=== PATIENT | female | born 1985 | race Caucasian/White ===

== ENCOUNTER 2017-01-13 17:03 | Emergency (ER) | payer OTHER, BC ==
[2017-01-13 17:07] VITALS: BP 148/79; BMI 37.9
[2017-01-13] MEDS ORDERED: NS 100 ML IV 100 ML IV ONE (17:44)
[2017-01-13] MEDS ORDERED: DILAUDID INJ IM ONE ×2 (18:19→18:31)
[2017-01-13] MEDS ORDERED: DILAUDID INJ ONE ×2 (18:20→18:31)
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
[2017-01-13] MEDS ORDERED: ZOFRAN INJ 4 MG VIAL IVP ONE ×2 (18:44→20:13)
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
[2017-01-13] MEDS ORDERED: ZOFRAN INJ 4 MG VIAL ONE (20:14)
== END 2017-01-13 20:40 | disposition home or self-care (01) ==
LOC: ER 17:03
DX: S30.811A Abrasion of abdominal wall, initial encounter (principal); V87.7XXA Person injured in collision between other specified motor vehicles (traffic), initial encounter
CPT/HCPCS: 70450; 71260; 72125; 73030; 73090; 73590; 74177; 96365; 96372; 96374; 96375; 99283; J2405

== ENCOUNTER → 2017-07-27 | Outpatient (CLI) | payer BC ==
--- NOTE | 2017-07-27 15:26 | US ---
HISTORY: Left breast lumps Bilateral digital diagnostic mammography with CAD and left breast ultrasound. Comparison: April 12, 2016 FINDINGS: Mammogram: Bilateral CC and MLO projections of the right and left breast were obtained. And mL view of the left breast was also obtained. Heterogeneously dense fibroglandular tissue is seen to be prese nt without significant interval change. No suspicious architectural distortion, mass or clustered mi crocalcifications can be observed to suggest malignancy. No skin thickening or nipple retraction is appreciated. No pathological lymphadenopathy can be identified. Benign-appearing calcifications are noted within the right and left breast. Ultrasound: Multiple grayscale and color Doppler images were obtained in the region of interest at 9 o'clock where there are 3 adjacent superficial horizontally oriented smoothly marginated and well cir cumscribed hypoechoic nodules with regions of posterior acoustical shadowing and internal vascularity favored to represent a combination of fibroadenomas and mildly complex cysts ranging in size from 5- 8 mm with the largest solid nodule located laterally in the breast in the smaller more cystic-appeari ng nodules located centrally. No suspicious cystic or solid nodule is seen to warrant biopsy at this time. IMPRESSION: Probably benign left breast nodules for which 6 month sonographic follow-up is recommend ed. ACR CATEGORY 3 - probably benign findings; short interval follow-up suggested. Diagnostic CAD was utilized and reviewed. * 0 (ZERO) - ASSESSMENT INCOMPLETE; ADDITIONAL IMAGING IS NEEDED. * 1/1 (ONE) - NEGATIVE. * 2/II (TWO) - BENIGN FINDINGS. * 3/III (THREE) - PROBABLY BENIGN FINDING; SHORT INTERVAL FOLLOW-UP SUGGESTED. * 4/IV (FOUR) - SUSPICIOUS ABNORMALITY; BIOPSY SHOULD BE CONSIDERED. * 5/V - HIGHLY SUSPICIOUS OF MALIGNANCY; BIOPSY SHOULD BE PERFORMED. A NEGATIVE X-RAY REPORT SHOULD NOT DELAY BIOPSY IF A DOMINANT OR CLINICALLY SUSPICIOUS MASS IS PRESENT; 4 TO 8 PERCENT OF CANCERS ARE NOT IDENTIFIED BY X-RAY. A NEGA TIVE REPORT MAY REINFORCE THE CLINICAL IMPRESSION. ADENOSIS AND DENSE BREASTS MAY OBSCURE AN UNDERLY ING NEOPLASM. Reported By:
== END ==
LOC: RAD 13:40
PROVIDERS: ATTEND Nurse Practitioner Family
DX: N63.22 Unspecified lump in the left breast, upper inner quadrant (principal)
CPT/HCPCS: 76642; 77066

== ENCOUNTER 2020-06-28 10:33 | Observation (INO) ==
--- NOTE | 2020-06-28 10:50 | DR.CP ---
HPI Time Seen Time Seen by Provider: 06/28/20 10:49 COVID-19 Coronavirus risk:travel/contact w/high risk person: No Has patient experienced Coronavirus symptoms: Yes Coronavirus symptoms experienced: Shortness of Breath Location Chest Pain Radiation Location: Left Jaw and Left Shoulder Associated Signs and Symptoms Associated Signs and Symptoms: Shortness of Breath PMH PMH Past Medical History: Anxiety and Depression Past Surgical History: Yes Surgical History: Hysterectomy Family History Family Medical History: Diabetes Mellitus, Cancer, [place], Coronary Artery Disease and Hypertension Social History Do you use any recreational Drugs:: No Travel Risk Coronavirus risk:travel/contact w/high risk person: No Has patient experienced Coronavirus symptoms: Yes Coronavirus symptoms experienced: Shortness of Breath PE Vitals Vitals: Temperature 97.8 F Pulse Rate 81 Respiratory Rate 23 Blood Pressure [Left Arm] 134/66 Blood Pressure 154/76 O2 Sat by Pulse Oximetry 100 ROR Labs Reviewed Result Diagrams: 06/28/20 11:26 06/28/20 11:26 Laboratory: WBC 7.9 X10^3/uL (3.6-10.0) 06/28/20 11:26 RBC 4.68 X10^6/uL (3.5-5.4) 06/28/20 11:26 Hgb 13.1 g/dL (12.0-16.0) 06/28/20 11:26 Hct 38.2 % (36.0-47.0) 06/28/20 11:26 MCV 81.6 fL (80.0-100.0) 06/28/20 11:26 MCH 28.0 pg (27.0-34.0) 06/28/20 11:26 MCHC 34.4 g/dL (33.0-35.0) 06/28/20 11:26 RDW 13.8 % (11.6-16.5) 06/28/20 11:26 Plt Count 224 X10^3/uL (150.0-450.0) 06/28/20 11:26 MPV 9.9 fL (7.4-11.0) 06/28/20 11:26 Neut % (Auto) 68.7 % (42.0-75.0) 06/28/20 11:26 Lymph % (Auto) 23.8 % (21.0-51.0) 06/28/20 11:26 [place] % (Auto) 5.7 % (0.0-13.0) 06/28/20 11:26 Eos % (Auto) 0.7 % (0.9-2.9) L 06/28/20 11:26 Baso % (Auto) 1.1 % (0.2-1.0) H 06/28/20 11:26 Neut # (Auto) 5.5 x10^3/uL (2.2-4.8) H 06/28/20 11:26 Lymph # (Auto) 1.9 X10^3/uL (1.3-2.9) 06/28/20 11:26 [place] # (Auto) 0.5 x10^3/uL (0.3-0.8) 06/28/20 11:26 Eos # (Auto) 0.1 x10^3/uL (0.0-0.2) 06/28/20 11: Baso # (Auto) 0.1 X10^3/uL (0.0-0.1) 06/28/20 11:26 Absolute Nucleated RBC 0.0 /100WBC 06/28/20 11:26 D-Dimer 0.30 ug/ml (0.0-0.57) 06/28/20 11:26 Sodium 142 mmol/L (136-145) 06/28/20 11:26 Corrected Sodium TNP 06/28/20 11:26 Potassium 3.6 mmol/L (3.5-5.1) 06/28/20 11:26 Chloride 103 mmol/L (98-107) 06/28/20 11:26 Carbon Dioxide 27.2 mmol/L (21-32) 06/28/20 11:26 BUN 14 mg/dL (7-18) 06/28/20 11:26 Creatinine 0.93 mg/dL (0.55-1.02) 06/28/20 11:26 Est GFR (MDRD) Af Amer > 60 (>60) 06/28/20 11:26 Est GFR (MDRD) Non-Af > 60 (>60) 06/28/20 11:26 Glucose 97 mg/dL (65-99) 06/28/20 11:26 Calcium 9.6 mg/dL (8.5-10.1) 06/28/20 11:26 Corrected Calcium TNP 06/28/20 11:26 Total Bilirubin 0.40 mg/dL (0.2-1.0) 06/28/20 11:26 AST 29 Units/L (15-37) 06/28/20 11:26 ALT 21 Units/L (12-78) 06/28/20 11:26 Alkaline Phosphatase 93 Units/L (46-116) 06/28/20 11:26 Creatine Kinase 87 Units/L (26-192) 06/28/20 11:26 CK-MB (CK-2) < 1.0 ng/mL (0-4.0) 06/28/20 11:26 CK/CKMB % Calc 1.2 % (<4) 06/28/20 11:26 Troponin I < 0.02 ng/mL (0-1.5) 06/28/20 11: B-Natriuretic Peptide 46.9 pg/mL (0-79) 06/28/20 11:26 Total Protein 8.1 g/dL (6.4-8.2) 06/28/20 11:26 Albumin 4.0 g/dL (3.4-5.0) 06/28/20 11:26 Globulin 4.1 g/dL (2.5-4.5) 06/28/20 11: Albumin/Globulin Ratio 1.0 Ratio (1.1-2.1) L 06/28/20 11:26 TSH 3rd Generation 6.739 uIU/mL (0.358-3.74) H 06/28/20 11: Specimen Type Clean catch urine 06/28/20 11:20 Urine Color Yellow (YELLOW) 06/28/20 11:20 Urine Appearance Clear (CLEAR) 06/28/20 11:20 Urine pH 8.0 (5.0 - 8.0) 06/28/20 11: Ur Specific [place] 1.020 (1.000-1.030) 06/28/20 11:20 Urine Protein Negative (NEGATIVE) 06/28/20 11: Urine Glucose (UA) Negative (NEGATIVE) 06/28/20 11: Urine Ketones Negative (NEGATIVE) 06/28/20 11: Urine Occult Blood Negative (NEGATIVE) 06/28/20 11:20 Urine Nitrite Negative (NEGATIVE) 06/28/20 11:20 Urine Bilirubin Negative (NEGATIVE) 06/28/20 11:20 Urine Urobilinogen Normal (NORMAL) 06/28/20 11:20 Ur Leukocyte Esterase Negative (NEGATIVE) 06/28/20 11:20 SARS-CoV-2 (PCR) Negative (NEGATIVE) 06/28/20 14:19 Opioid Opioid Risk Tool Age (Luis box if 16-45): Yes History of Preadolescent Sexual Abuse: No Total: 1 Total Score Risk Category: Low Risk Copyright: Baron ORANTES predicting aberrant behaviors Instructions Forms: Precautions for COVID19 Patient Portal Social Distancing
[2020-06-28 10:56] VITALS: BMI 42.7
[2020-06-28 11:39] LABS: BASOPHILS # (AUTO) 0.1 X10^3/uL (0.0-0.1); BASOPHILS % (AUTO) 1.1 % (0.2-1.0); EOSINOPHILS # (AUTO) 0.1 x10^3/uL (0.0-0.2); EOSINOPHILS % (AUTO) 0.7 % (0.9-2.9); HEMATOCRIT 38.2 % (36.0-47.0); HEMOGLOBIN 13.1 g/dL (12.0-16.0); LYMPHOCYTES # (AUTO) 1.9 X10^3/uL (1.3-2.9); LYMPHOCYTES % (AUTO) 23.8 % (21.0-51.0); MEAN CORPUSCULAR HGB CONC 34.4 g/dL (33.0-35.0); MEAN CORPUSCULAR VOLUME 81.6 fL (80.0-100.0); MEAN PLATELET VOLUME 9.9 fL (7.4-11.0); MONOCYTES # (AUTO) 0.5 x10^3/uL (0.3-0.8); MONOCYTES % (AUTO) 5.7 % (0.0-13.0); NEUTROPHILS # (AUTO) 5.5 x10^3/uL (2.2-4.8); NEUTROPHILS % (AUTO) 68.7 % (42.0-75.0); PLATELET COUNT 224 X10^3/uL (150.0-450.0); RED BLOOD COUNT 4.68 X10^6/uL (3.5-5.4); RED CELL DISTRIBUTION WIDTH 13.8 % (11.6-16.5); WHITE BLOOD COUNT 7.9 X10^3/uL (3.6-10.0)
[2020-06-28 11:50] LABS: BILIRUBIN,URINE NEGATIVE (NEGATIVE); BLOOD/HEMOGLOBIN,URINE NEGATIVE (NEGATIVE); GLUCOSE, URINE NEGATIVE (NEGATIVE); KETONES,URINE NEGATIVE (NEGATIVE); LEUKOCYTE ESTERASE ,URINE NEGATIVE (NEGATIVE); NITRITES,URINE NEGATIVE (NEGATIVE); PROTEIN,URINE NEGATIVE (NEGATIVE); UROBILINOGEN,URINE NORMAL (NORMAL)
[2020-06-28 12:00] LABS: BLOOD UREA NITROGEN 14 mg/dL (7-18); CALCIUM 9.6 mg/dL (8.5-10.1); CARBON DIOXIDE 27.2 mmol/L (21-32); CHLORIDE 103 mmol/L (98-107); CREATININE 0.93 mg/dL (0.55-1.02); SODIUM 142 mmol/L (136-145); TROPONIN I < 0.02 ng/mL (0-1.5); eGFR NON BLACK RACES > 60 (>60)
[2020-06-28 12:02] LABS: APPEARANCE,URINE CLEAR (CLEAR); COLOR,URINE YELLOW (YELLOW)
[2020-06-28 12:05] LABS: ALANINE AMINOTRANSFERASE 21 Units/L (12-78); ALKALINE PHOSPHATASE 93 Units/L (46-116); ASPARTATE AMINO TRANSFERASE 29 Units/L (15-37); CKMB % 1.2 % (<4); CREATINE KINASE 87 Units/L (26-192); CREATINE KINASE MB < 1.0 ng/mL (0-4.0); TOTAL PROTEIN 8.1 g/dL (6.4-8.2)
[2020-06-28] MEDS ORDERED: ZOFRAN INJ 4 MG VIAL IVP PRN (16:29)
[2020-06-28] MEDS ORDERED: TORADOL 30 MG VIAL IVP PRN (16:29)
[2020-06-28] MEDS ORDERED: MORPHINE SULFATE INJ 4 MG IVP PRN (16:29)
[2020-06-28] MEDS: NS 1000 ML 1,000 ML IV SCH (16:39)
[2020-06-28 17:22] LABS: CKMB % 1.5 % (<4); CREATINE KINASE 69 Units/L (26-192); CREATINE KINASE MB < 1.0 ng/mL (0-4.0); TROPONIN I < 0.02 ng/mL (0-1.5)
[2020-06-28] MEDS: TYLENOL 325 MG TAB PO PRN (21:12)
[2020-06-28] MEDS ORDERED: REQUIP PO ONE (23:22)
[2020-06-29] LABS: CKMB % 1.5 % (<4); CREATINE KINASE 65 Units/L (26-192); CREATINE KINASE MB < 1.0 ng/mL (0-4.0); TROPONIN I < 0.02 ng/mL (0-1.5)
[2020-06-29] MEDS ORDERED: REQUIP PO ONE (00:06)
[2020-06-29 00:07] LABS: MYCOPLASMA PNEUMONIAE IGM AB NEGATIVE (NEGATIVE)
[2020-06-29] MEDS: NS 1000 ML 1,000 ML IV SCH (06:22)
[2020-06-29 06:34] LABS: BASOPHILS # (AUTO) 0.1 X10^3/uL (0.0-0.1); EOSINOPHILS # (AUTO) 0.1 x10^3/uL (0.0-0.2); EOSINOPHILS % (AUTO) 1.7 % (0.9-2.9); HEMATOCRIT 36.2 % (36.0-47.0); HEMOGLOBIN 12.1 g/dL (12.0-16.0); LYMPHOCYTES # (AUTO) 2.2 X10^3/uL (1.3-2.9); LYMPHOCYTES % (AUTO) 33.4 % (21.0-51.0); MEAN CORPUSCULAR HEMOGLOBIN 27.8 pg (27.0-34.0); MEAN CORPUSCULAR HGB CONC 33.4 g/dL (33.0-35.0); MEAN CORPUSCULAR VOLUME 83.2 fL (80.0-100.0); MEAN PLATELET VOLUME 10.5 fL (7.4-11.0); MONOCYTES # (AUTO) 0.4 x10^3/uL (0.3-0.8); NEUTROPHILS # (AUTO) 3.7 x10^3/uL (2.2-4.8); NEUTROPHILS % (AUTO) 57.9 % (42.0-75.0); PLATELET COUNT 194 X10^3/uL (150.0-450.0); RED BLOOD COUNT 4.36 X10^6/uL (3.5-5.4); RED CELL DISTRIBUTION WIDTH 13.9 % (11.6-16.5); WHITE BLOOD COUNT 6.5 X10^3/uL (3.6-10.0)
[2020-06-29 06:46] LABS: ALANINE AMINOTRANSFERASE 20 Units/L (12-78); ALBUMIN 3.4 g/dL (3.4-5.0); ALKALINE PHOSPHATASE 79 Units/L (46-116); ASPARTATE AMINO TRANSFERASE 21 Units/L (15-37); BLOOD UREA NITROGEN 17 mg/dL (7-18); CALCIUM 8.9 mg/dL (8.5-10.1); CARBON DIOXIDE 26.6 mmol/L (21-32); CHLORIDE 106 mmol/L (98-107); CHOL/HDL RATIO 3.9 (0.0-5.0); CHOLESTEROL 151 mg/dL (0-200); CREATININE 0.86 mg/dL (0.55-1.02); HDL CHOLESTEROL 39 mg/dL (40-60); SODIUM 142 mmol/L (136-145); TOTAL PROTEIN 7.2 g/dL (6.4-8.2); TRIGLYCERIDES 85 mg/dL (0-150); eGFR NON BLACK RACES > 60 (>60)
[2020-06-29] MEDS ORDERED: ZOFRAN INJ 4 MG VIAL IVP PRN (08:03)
[2020-06-29] MEDS ORDERED: ANTIVERT TAB 25 MG PO PRN (08:04)
[2020-06-29] MEDS ORDERED: ATIVAN TAB 0.5 MG PO PRN (08:06)
--- NOTE | 2020-06-29 08:34 | DR.H&P ---
H&P History & Physical for Day of: H&P Date: 06/29/20 Chief Complaint Chief Complaint: Shortness of breath Palpitations Allergies Allergies Allergy/AdvReac Type Severity Reaction Status Date / Time promethazine [From Phenergan] Allergy Verified 10/17/19 10:29 History of Present Illness History of Present Illness: Pt is a 35 y/o f pmhx Hypothyroidism, MDD/ALEX, ad mitted for chest pain, palpitations, and shortness of breath. She reports symptoms have been occurring for over a month that has been getting worse. She recently seen cardiology-Dr Pryor that recommended a Holter monitor and stress test. Pt also has been having some dizziness and nausea. Labs/imaging: Wbc 6.5, Hgb 12.1, Plt 194, Na 142, K 3.6, Cr 0.86, Glucose 103, Troponin negative x 3, Ekg NSR, UA negative, COVID negative, TSH 6.7, FT4 0.9. Pt did not have CXR in ED, will order with ABG for further evaluation, otherwise workup unremarkable. Due to insurance was unable to get [place] thyroid, will contact pharmacy. Start on synthroid, ativan scheduled for anxiety, meclizine for dizziness. Continue to monitor and follow up labs/imaging in the morning. Past Medical History Past Medical History: Anxiety and Depression Past Surgical History Surgical History: Hysterectomy Family History Family Medical History: Cancer Social History Does patient currently use any type of tobacco product: No Have you used tobacco products in the last 12 months: No Type of Tobacco Use: None Does any household member use tobacco: No Alcohol Use: None Drug Use: None Medications Home Medications: promethazine [From Phenergan] Allergy (Verified 10/17/19 10:29) Labs Result Diagrams: 06/29/20 05:37 06/29/20 05:37 Labs: Laboratory WBC 6.5 X10^3/uL (3.6-10.0) 06/29/20 05:37 RBC 4.36 X10^6/uL (3.5-5.4) 06/29/20 05:37 Hgb 12.1 g/dL (12.0-16.0) 06/29/20 05:37 Hct 36.2 % (36.0-47.0) 06/29/20 05:37 MCV 83.2 fL (80.0-100.0) 06/29/20 05:37 MCH 27.8 pg (27.0-34.0) 06/29/20 05:37 MCHC 33.4 g/dL (33.0-35.0) 06/29/20 05:37 RDW 13.9 % (11.6-16.5) 06/29/20 05:37 Plt Count 194 X10^3/uL (150.0-450.0) 06/29/20 05:37 MPV 10.5 fL (7.4-11.0) 06/29/20 05:37 Neut % (Auto) 57.9 % (42.0-75.0) 06/29/20 05:37 Lymph % (Auto) 33.4 % (21.0-51.0) 06/29/20 05:37 [place] % (Auto) 6.0 % (0.0-13.0) 06/29/20 05:37 Eos % (Auto) 1.7 % (0.9-2.9) 06/29/20 05:37 Baso % (Auto) 1.0 % (0.2-1.0) 06/29/20 05:37 Neut # (Auto) 3.7 x10^3/uL (2.2-4.8) 06/29/20 05:37 Lymph # (Auto) 2.2 X10^3/uL (1.3-2.9) 06/29/20 05:37 [place] # (Auto) 0.4 x10^3/uL (0.3-0.8) 06/29/20 05:37 Eos # (Auto) 0.1 x10^3/uL (0.0-0.2) 06/29/20 05:37 Baso # (Auto) 0.1 X10^3/uL (0.0-0.1) 06/29/20 05:37 Absolute Nucleated RBC 0.1 /100WBC 06/29/20 05:37 PT 14.0 SECONDS (11.8-14.3) 06/29/20 05:37 INR Target Range - 06/29/20 05:37 INR 1.11 (0.8-1.3) 06/29/20 05:37 APTT 28.2 SECONDS (22.9-36.5) 06/29/20 05:37 PTT Comment - 06/29/20 05:37 D-Dimer 0.30 ug/ml (0.0-0.57) 06/28/20 11:26 Sodium 142 mmol/L (136-145) 06/29/20 05:37 Corrected Sodium TNP 06/29/20 05:37 Potassium 3.6 mmol/L (3.5-5.1) 06/29/20 05:37 Chloride 106 mmol/L (98-107) 06/29/20 05:37 Carbon Dioxide 26.6 mmol/L (21-32) 06/29/20 05:37 BUN 17 mg/dL (7-18) 06/29/20 05:37 Creatinine 0.86 mg/dL (0.55-1.02) 06/29/20 05:37 Est GFR (MDRD) Af Amer > 60 (>60) 06/29/20 05:37 Est GFR (MDRD) Non-Af > 60 (>60) 06/29/20 05:37 Glucose 103 mg/dL (65-99) H 06/29/20 05:37 Calcium 8.9 mg/dL (8.5-10.1) 06/29/20 05:37 Corrected Calcium TNP 06/29/20 05:37 Magnesium 2.0 mg/dL (1.7-2.9) 06/29/20 05:37 Total Bilirubin 0.50 mg/dL (0.2-1.0) 06/29/20 05:37 AST 21 Units/L (15-37) 06/29/20 05:37 ALT 20 Units/L (12-78) 06/29/20 05:37 Alkaline Phosphatase 79 Units/L (46-116) 06/29/20 05:37 Creatine Kinase 65 Units/L (26-192) 06/28/20 23:22 CK-MB (CK-2) < 1.0 ng/mL (0-4.0) 06/28/20 23:22 CK/CKMB % Calc 1.5 % (<4) 06/28/20 23:22 Troponin I < 0.02 ng/mL (0-1.5) 06/28/20 23:22 B-Natriuretic Peptide 46.9 pg/mL (0-79) 06/28/20 11:26 Total Protein 7.2 g/dL (6.4-8.2) 06/29/20 05:37 Albumin 3.4 g/dL (3.4-5.0) 06/29/20 05:37 Globulin 3.8 g/dL (2.5-4.5) 06/29/20 05:37 Albumin/Globulin Ratio 0.9 Ratio (1.1-2.1) L 06/29/20 05:37 Triglycerides 85 mg/dL (0-150) 06/29/20 05:37 Cholesterol 151 mg/dL (0-200) 06/29/20 05:37 LDL Cholesterol, Calc 95 mg/dL (0-100) 06/29/20 05:37 HDL Cholesterol 39 mg/dL (40-60) L 06/29/20 05:37 Cholesterol/HDL Ratio 3.9 (0.0-5.0) 06/29/20 05:37 Free T4 0.91 ng/dL (0.76-1.46) 06/28/20 11:26 TSH 3rd Generation 6.739 uIU/mL (0.358-3.74) H 06/28/20 11:26 Specimen Type Clean catch urine 06/28/20 11:20 Urine Color Yellow (YELLOW) 06/28/20 11:20 Urine Appearance Clear (CLEAR) 06/28/20 11:20 Urine pH 8.0 (5.0 - 8.0) 06/28/20 11:20 Ur Specific [place] 1.020 (1.000-1.030) 06/28/20 11:20 Urine Protein Negative (NEGATIVE) 06/28/20 11:20 Urine Glucose (UA) Negative (NEGATIVE) 06/28/20 11:20 Urine Ketones Negative (NEGATIVE) 06/28/20 11:20 Urine Occult Blood Negative (NEGATIVE) 06/28/20 11:20 Urine Nitrite Negative (NEGATIVE) 06/28/20 11:20 Urine Bilirubin Negative (NEGATIVE) 06/28/20 11:20 Urine Urobilinogen Normal (NORMAL) 06/28/20 11:20 Ur Leukocyte Esterase Negative (NEGATIVE) 06/28/20 11:20 Mycoplasma pneumon IgG Negative (NEGATIVE) 06/28/20 23: SARS-CoV-2 (PCR) Negative (NEGATIVE) 06/28/20 14:19 Review of Systems Constitutional: No Symptoms Reported Eyes: No Symptoms Reported ENT: No Symptoms Reported Respiratory: Shortness of Breath Cardiovascular: Chest Pain and Palpitations Gastrointestinal: Nausea Genitourinary: No Symptoms Reported Musculoskeletal: No Symptoms Reported Skin: No Symptoms Reported Neurological: No Symptoms Reported Physical Exam Vital Signs: Temperature 98.1 F Pulse Rate [Brachial] 78 Pulse Rate 81 Respiratory Rate 20 Blood Pressure [Left Arm] 119/65 Blood Pressure 154/76 O2 Sat by Pulse Oximetry 97 Oriented: Normal Eyes: Normal Ear: Normal Nose: Normal Throat: Normal Respiratory: Clear Throughout Cardiovascular: Normal : Normal Auscultation: Bowel Sounds: Normal Palpation: Normal Tenderness: Normal Skin: Normal Musculoskeletal: Normal Psychiatric: Anxiety Mood Description: Anxious and Appropriate Affect: Anxious Speech Pattern: Clear and Appropriate Assessment/Plan (1) Shortness of breath: Status: Acute Plan: Will get CXR and ABG to evaluate. (2) Anxiety: Status: Acute Plan: start on ativan (3) Hypothyroid: Qualifiers: Hypothyroidism type: acquired Qualified Code(s): E03.9 - Hypothyroidism, unspecified Status: Acute Plan: Start on synthroid, will follow up on [place] thyroid. Review H&P Reviewed: Yes Patient was examined?: Yes
--- NOTE | 2020-06-29 08:39 | RAD ---
HISTORYSOBSTUDYCHEST, PA/LAT [id number]-view chestFINDINGSThe cardiac and mediastinal contours are with in normal limits. The lungs are clear without focal consolidation or segmental collapse. No pleural e ffusion or pneumothorax.IMPRESSIONNo acute pulmonary process.Electronically signed by: Domenic Alexander (No v 2019 08:37:09)
[2020-06-29] MEDS: ATIVAN TAB 0.5 MG PO SCH ×2 (08:59→22:41)
[2020-06-29] MEDS: SYNTHROID 25 mcg TAB PO SCH ×2 (08:59→17:18)
[2020-06-29 09:18] LABS: ABG ALLEN TEST POS; ABG BASE EXCESS 1.9 mmol/L (-2.0-2.0); ABG HCO3 26.6 mmol/L (22-26)
[2020-06-29] MEDS: TYLENOL 325 MG TAB PO PRN (17:37)
[2020-06-30 05:42] LABS: BASOPHILS # (AUTO) 0.1 X10^3/uL (0.0-0.1); BASOPHILS % (AUTO) 1.4 % (0.2-1.0); EOSINOPHILS # (AUTO) 0.1 x10^3/uL (0.0-0.2); EOSINOPHILS % (AUTO) 1.8 % (0.9-2.9); HEMATOCRIT 37.1 % (36.0-47.0); HEMOGLOBIN 12.5 g/dL (12.0-16.0); LYMPHOCYTES # (AUTO) 2.6 X10^3/uL (1.3-2.9); MEAN CORPUSCULAR HEMOGLOBIN 27.9 pg (27.0-34.0); MEAN CORPUSCULAR HGB CONC 33.8 g/dL (33.0-35.0); MEAN CORPUSCULAR VOLUME 82.4 fL (80.0-100.0); MONOCYTES # (AUTO) 0.4 x10^3/uL (0.3-0.8); MONOCYTES % (AUTO) 5.7 % (0.0-13.0); NEUTROPHILS # (AUTO) 4.3 x10^3/uL (2.2-4.8); NEUTROPHILS % (AUTO) 57.1 % (42.0-75.0); PLATELET COUNT 188 X10^3/uL (150.0-450.0); RED CELL DISTRIBUTION WIDTH 13.9 % (11.6-16.5); WHITE BLOOD COUNT 7.5 X10^3/uL (3.6-10.0)
[2020-06-30 06:01] LABS: ALANINE AMINOTRANSFERASE 16 Units/L (12-78); ALBUMIN 3.5 g/dL (3.4-5.0); ALKALINE PHOSPHATASE 79 Units/L (46-116); ASPARTATE AMINO TRANSFERASE 21 Units/L (15-37); BLOOD UREA NITROGEN 18 mg/dL (7-18); CARBON DIOXIDE 24.8 mmol/L (21-32); CHLORIDE 106 mmol/L (98-107); CREATININE 0.78 mg/dL (0.55-1.02); SODIUM 141 mmol/L (136-145); TOTAL PROTEIN 7.5 g/dL (6.4-8.2); eGFR NON BLACK RACES > 60 (>60)
[2020-06-30] MEDS: ATIVAN TAB 0.5 MG PO SCH (08:39)
--- NOTE | 2020-06-30 11:42 | W.DIS.FURT ---
Summary of Discharge Discharge Summary of Date Date of Exam: 06/30/20 Admission Date Date of Admission: 06/28/20 Admission Diagnosis Hospital Course: Pt is a 35 y/o f pmhx Hypothyroidism, MDD/ALEX, admitted for chest pain rule out after feeling shortness of breath. Her hospital course included trending cardiac enzymes and placed on telemetry. She was given meclizine for dizziness, zofran for nausea, and ativan for anxiety. TSH was mildly elevated and FT4 wnl, however d/t symptoms Dawson thyroid was sent to pharmacy for patient to start taking on discharge, pt states she is unable to tolerate synthroid d/t palpitations and shortness of breath. She is being followed by cardiology-Dr White, and has a Holter monitor currently and will be scheduled for stress test outpt. Labs/imaging: Wbc 7.5, Hgb 12.5, Plt 188, Na 141, K 3.7, Cr 0.78, Glucose 100, Troponin negative x 3, Ekg NSR, UA negative, COVID negative, TSH 6.7, FT4 0.9, CXR negative, AB.42/41/81/26/96% on RA, TTE:EF 71%. Pt did not have any acute abnormalities during hospital stay. Rx ativan and meclizine to use prn. Pt discharged in stable condition, instructed to follow up with cardiology and pcp. Vital Signs: Vital Signs (72 hours) 06/28/20 10:48 06/28/20 10:50 06/28/20 10:56 Temperature 97.8 F Pulse Rate 94 H 98 H Pulse Rate [Brachial] Respiratory Rate 22 Blood Pressure 175/81 154/76 Blood Pressure [Left Arm] O2 Sat by Pulse Oximetry 100 100 06/28/20 11:00 06/28/20 11:22 06/28/20 11:30 Temperature Pulse Rate 96 H 93 H 86 Pulse Rate [Brachial] Respiratory Rate 35 H 24 Blood Pressure Blood Pressure [Left Arm] O2 Sat by Pulse Oximetry 99 97 100 06/28/20 11:45 06/28/20 12:00 06/28/20 12:15 Temperature Pulse Rate 85 86 82 Pulse Rate [Brachial] Respiratory Rate 16 22 21 Blood Pressure Blood Pressure [Left Arm] O2 Sat by Pulse Oximetry 100 100 100 06/28/20 12:30 06/28/20 12:45 06/28/20 13:00 Temperature Pulse Rate 83 81 78 Pulse Rate [Brachial] Respiratory Rate 21 19 18 Blood Pressure Blood Pressure [Left Arm] O2 Sat by Pulse Oximetry 100 100 100 06/28/20 13:15 06/28/20 13:30 06/28/20 16:10 Temperature 98.3 F Pulse Rate 76 81 Pulse Rate [Brachial] 77 Respiratory Rate 24 23 20 Blood Pressure Blood Pressure [Left Arm] 124/73 O2 Sat by Pulse Oximetry 100 100 100 06/28/20 16:40 06/28/20 17:10 06/28/20 20:00 Temperature 97.7 F Pulse Rate Pulse Rate [Brachial] 67 Respiratory Rate 20 18 18 Blood Pressure Blood Pressure [Left Arm] 123/63 O2 Sat by Pulse Oximetry 100 06/28/20 21:12 06/28/20 22:12 06/29/20 00:00 Temperature 97.8 F Pulse Rate Pulse Rate [Brachial] 73 Respiratory Rate 18 18 17 Blood Pressure Blood Pressure [Left Arm] 105/58 O2 Sat by Pulse Oximetry 99 06/29/20 04:00 06/29/20 08:00 06/29/20 12:00 Temperature 98.1 F 97.9 F 97.7 F Pulse Rate Pulse Rate [Brachial] 78 71 66 Respiratory Rate 20 20 18 Blood Pressure Blood Pressure [Left Arm] 119/65 116/55 106/59 O2 Sat by Pulse Oximetry 97 100 96 06/29/20 16:00 06/29/20 17:37 06/29/20 18:37 Temperature 98.3 F Pulse Rate Pulse Rate [Brachial] 80 Respiratory Rate 20 20 18 Blood Pressure Blood Pressure [Left Arm] 120/58 O2 Sat by Pulse Oximetry 99 06/29/20 19:37 06/29/20 20:00 06/30/20 00:00 Temperature 98.1 F 97.9 F Pulse Rate Pulse Rate [Brachial] 89 81 Respiratory Rate 20 20 24 Blood Pressure Blood Pressure [Left Arm] 118/68 110/63 O2 Sat by Pulse Oximetry 98 100 06/30/20 04:00 06/30/20 08:00 Temperature 97.7 F 97.6 F Pulse Rate Pulse Rate [Brachial] 71 72 Respiratory Rate 18 20 Blood Pressure Blood Pressure [Left Arm] 116/62 106/58 O2 Sat by Pulse Oximetry 97 99 Labs: Laboratory Last Values WBC 7.5 X10^3/uL (3.6-10.0) 06/30/20 05:29 RBC 4.50 X10^6/uL (3.5-5.4) 06/30/20 05:29 Hgb 12.5 g/dL (12.0-16.0) 06/30/20 05:29 Hct 37.1 % (36.0-47.0) 06/30/20 05:29 MCV 82.4 fL (80.0-100.0) 06/30/20 05:29 MCH 27.9 pg (27.0-34.0) 06/30/20 05:29 MCHC 33.8 g/dL (33.0-35.0) 06/30/20 05:29 RDW 13.9 % (11.6-16.5) 06/30/20 05:29 Plt Count 188 X10^3/uL (150.0-450.0) 06/30/20 05:29 MPV 10.0 fL (7.4-11.0) 06/30/20 05:29 Neut % (Auto) 57.1 % (42.0-75.0) 06/30/20 05:29 Lymph % (Auto) 34.0 % (21.0-51.0) 06/30/20 05:29 [place] % (Auto) 5.7 % (0.0-13.0) 06/30/20 05:29 Eos % (Auto) 1.8 % (0.9-2.9) 06/30/20 05:29 Baso % (Auto) 1.4 % (0.2-1.0) H 06/30/20 05:29 Neut # (Auto) 4.3 x10^3/uL (2.2-4.8) 06/30/20 05:29 Lymph # (Auto) 2.6 X10^3/uL (1.3-2.9) 06/30/20 05:29 [place] # (Auto) 0.4 x10^3/uL (0.3-0.8) 06/30/20 05:29 Eos # (Auto) 0.1 x10^3/uL (0.0-0.2) 06/30/20 05:29 Baso # (Auto) 0.1 X10^3/uL (0.0-0.1) 06/30/20 05:29 Absolute Nucleated RBC 0.2 /100WBC 06/30/20 05:29 PT 14.0 SECONDS (11.8-14.3) 06/29/20 05:37 INR Target Range - 06/29/20 05:37 INR 1.11 (0.8-1.3) 06/29/20 05:37 APTT 28.2 SECONDS (22.9-36.5) 06/29/20 05:37 PTT Comment - 06/29/20 05:37 D-Dimer 0.30 ug/ml (0.0-0.57) 06/28/20 11:26 Sample Site Lr 06/29/20 09:12 ABG pH 7.420 (7.35-7.45) 06/29/20 09:12 ABG pCO2 41.0 mmHg (35.0-45.0) 06/29/20 09:12 ABG pO2 81.0 mmHg (80.0-100.0) 06/29/20 09:12 ABG HCO3 26.6 mmol/L (22-26) H 06/29/20 09:12 ABG O2 Saturation 96.0 % (90-100) 06/29/20 09:12 ABG Base Excess 1.9 mmol/L (-2.0-2.0) 06/29/20 09:12 Jorge Luis Test Pos 06/29/20 09:12 A-a Gradient 17.0 mmHg 06/29/20 09:12 FiO2 21.0 06/29/20 09:12 Blood Gas Comments Anastacio well gmb 06/29/20 09:12 Sodium 141 mmol/L (136-145) 06/30/20 05:29 Corrected Sodium TNP 06/30/20 05:29 Potassium 3.7 mmol/L (3.5-5.1) 06/30/20 05:29 Chloride 106 mmol/L (98-107) 06/30/20 05:29 Carbon Dioxide 24.8 mmol/L (21-32) 06/30/20 05:29 BUN 18 mg/dL (7-18) 06/30/20 05:29 Creatinine 0.78 mg/dL (0.55-1.02) 06/30/20 05:29 Est GFR (MDRD) Af Amer > 60 (>60) 06/30/20 05:29 Est GFR (MDRD) Non-Af > 60 (>60) 06/30/20 05:29 Glucose 100 mg/dL (65-99) H 06/30/20 05:29 Calcium 9.0 mg/dL (8.5-10.1) 06/30/20 05:29 Corrected Calcium TNP 06/30/20 05:29 Magnesium 2.0 mg/dL (1.7-2.9) 06/29/20 05:37 Total Bilirubin 0.40 mg/dL (0.2-1.0) 06/30/20 05:29 AST 21 Units/L (15-37) 06/30/20 05:29 ALT 16 Units/L (12-78) 06/30/20 05:29 Alkaline Phosphatase 79 Units/L (46-116) 06/30/20 05:29 Creatine Kinase 65 Units/L (26-192) 06/28/20 23:22 CK-MB (CK-2) < 1.0 ng/mL (0-4.0) 06/28/20 23:22 CK/CKMB % Calc 1.5 % (<4) 06/28/20 23:22 Troponin I < 0.02 ng/mL (0-1.5) 06/28/20 23:22 B-Natriuretic Peptide 46.9 pg/mL (0-79) 06/28/20 11:26 Total Protein 7.5 g/dL (6.4-8.2) 06/30/20 05:29 Albumin 3.5 g/dL (3.4-5.0) 06/30/20 05:29 Globulin 4.0 g/dL (2.5-4.5) 06/30/20 05:29 Albumin/Globulin Ratio 0.9 Ratio (1.1-2.1) L 06/30/20 05:29 Triglycerides 85 mg/dL (0-150) 06/29/20 05:37 Cholesterol 151 mg/dL (0-200) 06/29/20 05:37 LDL Cholesterol, Calc 95 mg/dL (0-100) 06/29/20 05:37 HDL Cholesterol 39 mg/dL (40-60) L 06/29/20 05:37 Cholesterol/HDL Ratio 3.9 (0.0-5.0) 06/29/20 05:37 Free T4 0.91 ng/dL (0.76-1.46) 06/28/20 11:26 Free T4 Index Cancelled 06/28/20 11:26 TSH 3rd Generation 6.739 uIU/mL (0.358-3.74) H 06/28/20 11:26 Specimen Type Clean catch urine 06/28/20 11:20 Urine Color Yellow (YELLOW) 06/28/20 11:20 Urine Appearance Clear (CLEAR) 06/28/20 11:20 Urine pH 8.0 (5.0 - 8.0) 06/28/20 11: Ur Specific [place] 1.020 (1.000-1.030) 06/28/20 11:20 Urine Protein Negative (NEGATIVE) 06/28/20 11:20 Urine Glucose (UA) Negative (NEGATIVE) 06/28/20 11:20 Urine Ketones Negative (NEGATIVE) 06/28/20 11:20 Urine Occult Blood Negative (NEGATIVE) 06/28/20 11:20 Urine Nitrite Negative (NEGATIVE) 06/28/20 11:20 Urine Bilirubin Negative (NEGATIVE) 06/28/20 11:20 Urine Urobilinogen Normal (NORMAL) 06/28/20 11:20 Ur Leukocyte Esterase Negative (NEGATIVE) 06/28/20 11:20 Mycoplasma pneumon IgG Negative (NEGATIVE) 06/28/20 23:22 SARS-CoV-2 (PCR) Negative (NEGATIVE) 06/28/20 14:19 Reason For Visit: SOB, CP, VERTIGO, PALPITASTION, ELEVATED TSH Discharge Date Discharge Date: 06/30/20 Discharge Diagnosis All Active Problems (Updated 06/30/20 @ 11:39 by Bonnie Wu) Shortness of breath (Acute) Chest pain (Acute) Palpitations (Acute) Vertigo (Acute) Elevated TSH (Acute) Plan of Treatment: Continue with present treatment and follow up plan. Pt is to keep follow up appointment as instructed and take medications as ordered. Discharge Medications Discharge Medications: promethazine [From Phenergan] Allergy (Verified 10/17/19 10:29) New Prescriptions lorazepam 0.5 mg PO DAILY PRN 30 Days #30 tab MDD 0.5 mg 06/30/20 [Rx] meclizine 12.5 mg PO BID PRN 15 Days #15 tab 06/30/20 [Rx] Discharge Disposition Discharge Disposition: Home Discharge Condition: Stable Discharge Plan Discharge Plan Hospital Course: Pt is a 35 y/o f pmhx Hypothyroidism, MDD/ALEX, admitted for chest pain rule out after feeling shortness of breath. Her hospital course included trending cardiac enzymes and placed on telemetry. She was given meclizine for dizziness, zofran for nausea, and ativan for anxiety. TSH was mildly elevated and FT4 wnl, however d/t symptoms Dawson thyroid was sent to pharmacy for patient to start taking on discharge, pt states she is unable to tolerate synthroid d/t palpitations and shortness of breath. She is being followed by cardiology-Dr White, and has a Holter monitor currently and will be scheduled for stress test outpt. Labs/imaging: Wbc 7.5, Hgb 12.5, Plt 188, Na 141, K 3.7, Cr 0.78, Glucose 100, Troponin negative x 3, Ekg NSR, UA negative, COVID negative, TSH 6.7, FT4 0.9, CXR negative, AB.42/41/81/26/96% on RA, TTE:EF 71%. Pt did not have any acute abnormalities during hospital stay. Rx ativan and meclizine to use prn. Pt discharged in stable condition, instructed to follow up with cardiology and pcp. Patient Disposition: HOME, SELF-CARE Condition: Stable Health Concerns: Post Hospitalization: new medications and changes needed to prevent readmission or further decline. Pt educated and given instructions on all concerns. Care Plan Goals: Problem: Cardiac Complications Goal: Early Recognition of cardiac complications for prompt intervention Instructions: Follow provided instructions. Follow up with primary physician as directed. Contact primary care physician or report to the closest Emergency Room if condition worsens. Plan of Treatment: Continue with present treatment and follow up plan. Pt is to keep follow up appointment as instructed and take medications as ordered. Prescription drug monitoring program results: PDMP reviewed and no concerns identified Prescriptions: New lorazepam 0.5 mg Tablet 0.5 mg PO DAILY MDD 0.5 mg PRN (Reason: Anxiety) 30 Days Qty: 30 RF: 0 meclizine 25 mg Tablet 12.5 mg PO BID PRN (Reason: dizziness) 15 Days Qty: 15 RF: 0 Orders to Discharge Patient Discharge Orders: Discharge (Routine); Ordered 06/30/20 Ordered By: Baltazar Cortes Follow ups/Referrals Follow ups/Referrals: ANDREA WHITE [STAFF PHYSICIAN] - 07/10/20 10:45 am Baltazar Cortes [Primary Care Provider] - 07/14/20 10:00 am Instructions Instructions: Sinus Tachycardia, Nonspecific Chest Pain, [id number], Panic At tack, Hyperventilation, Living With Depression, Living With Anxiety Stand Alone Forms: Excuse From Work, Precautions for COVID19, Patient Portal, Social Distancing
[2020-06-30 12:30] VITALS: BP 110/69
== END 2020-06-30 10:40 | disposition home or self-care (01) ==
LOC: MED/SURG 10:33 → ER 10:33 → MED/SURG 16:10
PROVIDERS: ADMIT Internal Medicine; ATTEND Family Medicine
DX: R06.02 Shortness of breath; Z20.828 Contact with and (suspected) exposure to other viral communicable diseases; R00.2 Palpitations; E05.90 Thyrotoxicosis, unspecified without thyrotoxic crisis or storm; R42 Dizziness and giddiness; R07.9 Chest pain, unspecified

== ENCOUNTER 2020-12-07 12:16 | Observation (INO) ==
[2020-12-07] MEDS ORDERED: NS 1000 ML 1,000 ML IV ONE (12:30)
[2020-12-07] MEDS ORDERED: DILAUDID INJ IVP ONE (12:30)
--- NOTE | 2020-12-07 12:35 | ED.ABDFE ---
HPI Time Seen Time Seen by Provider: 12/07/20 12:30 PCP Primary Care Physician: TYLER MCCOY TITLE SEARCH MANAGER Complaint Doctors Chief Complaint Comments: known GB issues. s/p duffy for same per Dr Wade states sx worse in last few days. 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 PT STATES " OVER THE WEEKEND I HAD SHARP ABD PAINS , AND > DIARRHEA , PT HAS AN APPT WITH [facility] ON MONDAY ,BR COVID-19 Coronavirus risk:travel/contact w/high risk person: No Has patient experienced Coronavirus symptoms: No Reviewed Nurses Notes Review: Yes Source History Provided: Patient Mode of arrival Mode of Arrival: In Arms Timing Onset of Chief Complaint: 12/05/20 PMH PMH Past Medical History: Yes Past Medical History: Anxiety and Depression Past Surgical History: Yes Surgical History: Hysterectomy Past Surgical History Comment: TUBAL Family History History of Family Medical Conditions: Yes Family Medical History: Cancer Social History Does patient currently use any type of tobacco product: No Have you used tobacco products in the last 12 months: No Type of Tobacco Use: None Does any household member use tobacco: No Alcohol Use: None Do you use any recreational Drugs:: No Lives With: Family Lives Where: Home Travel Risk Coronavirus risk:travel/contact w/high risk person: No Has patient experienced Coronavirus symptoms: No Infectious screening In the last 2 months have you had wt loss of >10#?: NO Have you had fever, night sweats or hemotysis?: No Have you traveled outside the country in the last 6 months?: No Isolation: Standard ROS Review of Systems Constitutional: See HPI Eyes: No Symptoms Reported ENTM: No Symptoms Reported Respiratoy: No Symptoms Reported Cardiovascular: No Symptoms Reported Gastrointestinal/Abdominal: See HPI, Abdominal Pain and Nausea Genitourinary: No Symptoms Reported Neurological: No Symptoms Reported Musculoskeletal: No Symptoms Reported Integumentary: No Symptoms Reported PE Vital Signs Vitals: Temperature 97.9 F Pulse Rate 80 Respiratory Rate 20 Blood Pressure [Left Arm] 101/73 Blood Pressure 138/76 O2 Sat by Pulse Oximetry 99 General General Appearance: Alert Head Head Exam: Normal Inspection, Atraumatic and Normocephalic Eyes Eye exam: Normal Appearance, PERRL and EOMI ENT ENT Exam: Normal Exam and Normal Oropharynx Neck Neck Exam: Normal Inspection and Full ROM Respiratory Respiratory Exam: Normal Lung Sounds Bilat Cardiovascular Cardiovascular Exam: Regular Rate and Normal Heart Sounds Abdominal Exam Abdominal Exam: Normal Inspection and Normal Bowel Sounds Back Back Exam: Normal Inspection and Full ROM; negative Tenderness MDM Additional Information Obtained From Additional Findings:: seen by gen zamudio who recommends obs- Dr Vicente ROR Labs Reviewed Laboratory Results Reviewed?: Yes Result Diagrams: 12/07/20 12:43 12/07/20 12:43 Laboratory: WBC 7.1 X10^3/uL (3.6-10.0) 12/07/20 12:43 RBC 4.52 X10^6/uL (3.5-5.4) 12/07/20 12:43 Hgb 12.5 g/dL (12.0-16.0) 12/07/20 12:43 Hct 36.5 % (36.0-47.0) 12/07/20 12:43 MCV 80.8 fL (80.0-100.0) 12/07/20 12:43 MCH 27.6 pg (27.0-34.0) 12/07/20 12:43 MCHC 34.1 g/dL (33.0-35.0) 12/07/20 12:43 RDW 14.3 % (11.6-16.5) 12/07/20 12:43 Plt Count 230 X10^3/uL (150.0-450.0) 12/07/20 12:43 MPV 9.5 fL (7.4-11.0) 12/07/20 12:43 Neut % (Auto) 66.4 % (42.0-75.0) 12/07/20 12:43 Lymph % (Auto) 26.2 % (21.0-51.0) 12/07/20 12:43 [place] % (Auto) 5.0 % (0.0-13.0) 12/07/20 12:43 Eos % (Auto) 1.3 % (0.9-2.9) 12/07/20 12:43 Baso % (Auto) 1.1 % (0.2-1.0) H 12/07/20 12:43 Neut # (Auto) 4.7 x10^3/uL (2.2-4.8) 12/07/20 12:43 Lymph # (Auto) 1.9 X10^3/uL (1.3-2.9) 12/07/20 12:43 [place] # (Auto) 0.4 x10^3/uL (0.3-0.8) 12/07/20 12:43 Eos # (Auto) 0.1 x10^3/uL (0.0-0.2) 12/07/20 12:43 Baso # (Auto) 0.1 X10^3/uL (0.0-0.1) 12/07/20 12:43 Absolute Nucleated RBC 0.1 /100WBC 12/07/20 12:43 Sodium 143 mmol/L (136-145) 12/07/20 12:43 Corrected Sodium TNP 12/07/20 12:43 Potassium 4.0 mmol/L (3.5-5.1) 12/07/20 12:43 Chloride 104 mmol/L (98-107) 12/07/20 12:43 Carbon Dioxide 29.1 mmol/L (21-32) 12/07/20 12:43 BUN 12 mg/dL (7-18) 12/07/20 12:43 Creatinine 0.84 mg/dL (0.55-1.02) 12/07/20 12:43 Est GFR (MDRD) Af Amer > 60 (>60) 12/07/20 12:43 Est GFR (MDRD) Non-Af > 60 (>60) 12/07/20 12:43 Glucose 101 mg/dL (65-99) H 12/07/20 12:43 Calcium 9.2 mg/dL (8.5-10.1) 12/07/20 12:43 Corrected Calcium TNP 12/07/20 12:43 Total Bilirubin 0.50 mg/dL (0.2-1.0) 12/07/20 12:43 AST 22 Units/L (15-37) 12/07/20 12:43 ALT 22 Units/L (12-78) 12/07/20 12:43 Alkaline Phosphatase 91 Units/L (46-116) 12/07/20 12:43 Total Protein 7.8 g/dL (6.4-8.2) 12/07/20 12:43 Albumin 3.7 g/dL (3.4-5.0) 12/07/20 12:43 Globulin 4.1 g/dL (2.5-4.5) 12/07/20 12:43 Albumin/Globulin Ratio 0.9 Ratio (1.1-2.1) L 12/07/20 12:43 Amylase 53 Units/L (25-115) 12/07/20 12:43 Lipase 87 Units/L (73-393) 12/07/20 12:43 HCG, Qual Positive >10 mIU/mL 12/07/20 12:43 HCG, Quant 6 mIU/mL (0-6) 12/07/20 12:43 Opioid Opioid Risk Tool Age (Luis box if 16-45): Yes History of Preadolescent Sexual Abuse: No Total: 1 Total Score Risk Category: Low Risk Copyright: Baron ORANTES predicting aberrant behaviors Diagnosis Discharge Problem: Diarrhea, Nausea and vomiting in adult patient
[2020-12-07] MEDS ORDERED: DILAUDID INJ ONE (12:38)
[2020-12-07] MEDS ORDERED: REGLAN INJ 10 MG VIAL ONE (12:38)
[2020-12-07] MEDS ORDERED: NS 1000 ML 1,000 ML ONE ×2 (12:39→15:58)
[2020-12-07] MEDS: REGLAN INJ 10 MG VIAL IVP PRN ×2 (12:51→23:42)
[2020-12-07 12:53] LABS: BASOPHILS # (AUTO) 0.1 X10^3/uL (0.0-0.1); BASOPHILS % (AUTO) 1.1 % (0.2-1.0); EOSINOPHILS # (AUTO) 0.1 x10^3/uL (0.0-0.2); EOSINOPHILS % (AUTO) 1.3 % (0.9-2.9); HEMATOCRIT 36.5 % (36.0-47.0); HEMOGLOBIN 12.5 g/dL (12.0-16.0); LYMPHOCYTES # (AUTO) 1.9 X10^3/uL (1.3-2.9); LYMPHOCYTES % (AUTO) 26.2 % (21.0-51.0); MEAN CORPUSCULAR HEMOGLOBIN 27.6 pg (27.0-34.0); MEAN CORPUSCULAR HGB CONC 34.1 g/dL (33.0-35.0); MEAN CORPUSCULAR VOLUME 80.8 fL (80.0-100.0); MEAN PLATELET VOLUME 9.5 fL (7.4-11.0); MONOCYTES # (AUTO) 0.4 x10^3/uL (0.3-0.8); NEUTROPHILS # (AUTO) 4.7 x10^3/uL (2.2-4.8); NEUTROPHILS % (AUTO) 66.4 % (42.0-75.0); PLATELET COUNT 230 X10^3/uL (150.0-450.0); RED BLOOD COUNT 4.52 X10^6/uL (3.5-5.4); RED CELL DISTRIBUTION WIDTH 14.3 % (11.6-16.5); WHITE BLOOD COUNT 7.1 X10^3/uL (3.6-10.0)
[2020-12-07 13:12] LABS: ALANINE AMINOTRANSFERASE 22 Units/L (12-78); ALBUMIN 3.7 g/dL (3.4-5.0); ALKALINE PHOSPHATASE 91 Units/L (46-116); AMYLASE 53 Units/L (25-115); ASPARTATE AMINO TRANSFERASE 22 Units/L (15-37); BLOOD UREA NITROGEN 12 mg/dL (7-18); CALCIUM 9.2 mg/dL (8.5-10.1); CARBON DIOXIDE 29.1 mmol/L (21-32); CHLORIDE 104 mmol/L (98-107); CREATININE 0.84 mg/dL (0.55-1.02); LIPASE 87 Units/L (73-393); SODIUM 143 mmol/L (136-145); TOTAL PROTEIN 7.8 g/dL (6.4-8.2); eGFR NON BLACK RACES > 60 (>60)
[2020-12-07 13:15] LABS: SERUM PREGNANCY TEST, QUAL POSITIVE >10 mIU/mL
--- NOTE | 2020-12-07 13:34 | RAD ---
HISTORYRUQ ABD PAIN, N/VSTUDYACUTE ABDOMEN SERIESCOMPARISONCT abdomen and pelvis 07/03/2020.TECHNIQUEFour view acute abdomen series.FINDINGSThe cardiac and mediastinal contours are within normal limits. The lungs are clear without focal consolidation or segmental collapse. No pleural effusion or pneumothorax.Nonobstructive bowel gas pattern. No definite pneumatosis, free air or portal venous gas. No suspicious abdominal calcifications. Calcifications in the pelvis are likely phleboliths.IMPRESSIONNonobstructive bowel gas pattern.Electronically signed by: Domenic Alexander (December 07, 2020 13:33:07)
[2020-12-07] MEDS ORDERED: FLAGYL IV PREMIX 500 MG BAG 500 MG/100 ML BAG IV ONE (15:58)
[2020-12-07] MEDS: FLAGYL IV PREMIX 500 MG BAG 500 MG/100 ML BAG IV SCH ×2 (16:05→20:33)
[2020-12-07] MEDS: NS 1000 ML 1,000 ML IV SCH (16:05)
[2020-12-07 21:25] LABS: BILIRUBIN,URINE NEGATIVE (NEGATIVE); BLOOD/HEMOGLOBIN,URINE NEGATIVE (NEGATIVE); GLUCOSE, URINE NEGATIVE (NEGATIVE); KETONES,URINE NEGATIVE (NEGATIVE); LEUKOCYTE ESTERASE ,URINE NEGATIVE (NEGATIVE); NITRITES,URINE NEGATIVE (NEGATIVE); PROTEIN,URINE NEGATIVE (NEGATIVE); UROBILINOGEN,URINE NORMAL (NORMAL)
[2020-12-07 21:27] LABS: APPEARANCE,URINE CLEAR (CLEAR); COLOR,URINE YELLOW (YELLOW)
[2020-12-08] MEDS: FLAGYL IV PREMIX 500 MG BAG 500 MG/100 ML BAG IV SCH ×4 (03:22→20:50)
[2020-12-08] MEDS: NS 1000 ML 1,000 ML IV SCH ×5 (03:28→16:21)
[2020-12-08] MEDS ORDERED: BUTT CREAM (COMPOUND) TOP PRN (08:20)
[2020-12-08 09:15] LABS: BASOPHILS # (AUTO) 0.1 X10^3/uL (0.0-0.1); BASOPHILS % (AUTO) 1.2 % (0.2-1.0); EOSINOPHILS # (AUTO) 0.1 x10^3/uL (0.0-0.2); EOSINOPHILS % (AUTO) 1.5 % (0.9-2.9); HEMATOCRIT 34.4 % (36.0-47.0); HEMOGLOBIN 11.7 g/dL (12.0-16.0); LYMPHOCYTES # (AUTO) 1.8 X10^3/uL (1.3-2.9); MEAN CORPUSCULAR HEMOGLOBIN 27.7 pg (27.0-34.0); MEAN CORPUSCULAR HGB CONC 34.1 g/dL (33.0-35.0); MEAN CORPUSCULAR VOLUME 81.1 fL (80.0-100.0); MEAN PLATELET VOLUME 9.9 fL (7.4-11.0); MONOCYTES # (AUTO) 0.4 x10^3/uL (0.3-0.8); NEUTROPHILS # (AUTO) 4.2 x10^3/uL (2.2-4.8); NEUTROPHILS % (AUTO) 63.3 % (42.0-75.0); PLATELET COUNT 201 X10^3/uL (150.0-450.0); RED BLOOD COUNT 4.24 X10^6/uL (3.5-5.4); RED CELL DISTRIBUTION WIDTH 14.2 % (11.6-16.5); WHITE BLOOD COUNT 6.6 X10^3/uL (3.6-10.0)
[2020-12-08 09:31] LABS: SERUM PREGNANCY TEST, QUAL NEGATIVE <10 mIU/mL
[2020-12-08 09:41] LABS: ALANINE AMINOTRANSFERASE 21 Units/L (12-78); ALBUMIN 3.3 g/dL (3.4-5.0); ALKALINE PHOSPHATASE 76 Units/L (46-116); ASPARTATE AMINO TRANSFERASE 17 Units/L (15-37); BLOOD UREA NITROGEN 7 mg/dL (7-18); CALCIUM 8.7 mg/dL (8.5-10.1); CHLORIDE 107 mmol/L (98-107); COR CA(FOR HYPOALB) 9.3 mg/dL (8.5-10.1); SODIUM 144 mmol/L (136-145); eGFR NON BLACK RACES > 60 (>60)
[2020-12-08 09:43] VITALS: BMI 47.0
[2020-12-08] MEDS: REGLAN INJ 10 MG VIAL IVP PRN (11:02)
--- NOTE | 2020-12-08 17:28 | DR.H&P ---
H&P - History & Physical for Day of: H&P Date: 12/07/20 - Chief Complaint Chief Complaint: RIGHT UPPER ABDOMINAL PAIN, N/D - History of Present Illness History of Present Illness: 35-year-old female who presented to the ER with diffuse abdominal pain, more to the right upper quadrant, as well as the left lower quadrant with associated nausea and severe diarrhea with on and off rectal bleeding. The bleeding was described as sometimes bright red and sometimes darker with a mucus-type discharge. The diarrhea was associated with meals. The pain was on and off and severe at times. Her symptoms became worse over the past few days but actually, she has a long-standing history of abdominal pain, frequent loose bowel movements with on and off rectal bleeding over the past year. There is no known history of inflammatory bowel disease or active colitis. No history of peptic ulcer disease. The patient had a GI workup done by Dr. Nice. Upper and lower endoscopies were performed within the past year with basically normal findings. A recent CAT scan and ultrasound were reported as normal. Gallbladder ultrasound did not reveal any stones, but the biliary scan showed ejection fraction of 35%, which is at lower borderline values with reproduction of the patients symptoms with a stimulating test. The patient had some testing on her thyroid which showed multinodular goiters. - Past Medical History Past Medical History: Depression, Anxiety - Past Surgical History Surgical History: Hysterectomy, Tonsillectomy - Family History Family Medical History: Diabetes Mellitus, Cancer, NH, Sudden Cardiac - Social History Does patient currently use any type of tobacco product: No Have you used tobacco products in the last 12 months: No Type of Tobacco Use: None Does any household member use tobacco: No Alcohol Use: None Drug Use: None - Medications Home Medications: promethazine [From Phenergan] Allergy (Mild, Verified 12/07/20 12:17) RASH CONTINUE taking the following medications diltiazem HCl 120 mg PO DAILY PRN 12/07/20 [History] fluoxetine 10 mg PO HS PRN 12/07/20 [History] pantoprazole 40 mg PO BID 12/07/20 [History] valacyclovir 1,000 mg PO Q12H 12/07/20 [History] New Prescriptions metronidazole [Flagyl] 500 mg PO Q8H 10 Days #30 tab 12/08/20 [Rx] - Review of Systems Constitutional: Malaise Eyes: No Symptoms Reported ENT: No Symptoms Reported Respiratory: No Symptoms Reported Cardiovascular: No Symptoms Reported Gastrointestinal: Nausea, Abdominal Pain, Diarrhea, Hematochezia. denies: Vomiting Genitourinary: No Symptoms Reported Musculoskeletal: No Symptoms Reported Skin: No Symptoms Reported Neurological: No Symptoms Reported - Physical Exam Vital Signs: Temperature 98.3 F Pulse Rate [Left Radial] 76 Pulse Rate 80 Respiratory Rate 18 Blood Pressure [Left Arm] 112/62 Blood Pressure 138/76 O2 Sat by Pulse Oximetry 100 Oriented: Normal Eyes: Normal Ear: Normal Nose: Normal Throat: Normal Respiratory: RLL Diminished, LLL Diminished Cardiovascular: Normal, Irregular Auscultation: Bowel Sounds: Normal Palpation: Normal Tenderness: RUQ, Epigastric Skin: Normal Musculoskeletal: Normal Psychiatric: Anxiety Affect: Anxious Speech Pattern: Clear, Appropriate - Assessment/Plan (1) Acute colitis Status: Acute Plan: ADMIT, NPO. IV HYDRATION, IV PAIN AND NAUSEA CONTROL. IV FLAGYL, STOOL STUDIES. CONSULT DR COTTER (2) Biliary dyskinesia Status: Acute - Allergies Allergies/Adverse Reactions: Allergies Allergy/AdvReac Type Severity Reaction Status Date / Time promethazine [From Phenergan] Allergy Mild RASH Verified 12/07/20 12:17
[2020-12-09] MEDS: NS 1000 ML 1,000 ML IV SCH ×3 (00:12→18:25)
[2020-12-09] MEDS: FLAGYL IV PREMIX 500 MG BAG 500 MG/100 ML BAG IV SCH ×4 (02:15→20:30)
[2020-12-09] MEDS ORDERED: BACTROBAN TOPICAL OINT ONE (07:44)
[2020-12-09] MEDS ORDERED: LR 1000 ML IV 1,000 ML IV ONE (07:55)
[2020-12-09] MEDS ORDERED: ANCEF 1 GRAM IV PREMIX* 2 G/100 ML BAG IV ONE (07:57)
[2020-12-09] MEDS ORDERED: DECADRON INJ ONE ×2 (08:11→08:16)
[2020-12-09] MEDS ORDERED: TORADOL 30 MG VIAL ONE ×2 (08:11→08:16)
[2020-12-09] MEDS ORDERED: FENTANYL INJ 100 mcg ONE (08:12)
[2020-12-09] MEDS ORDERED: NS 1000 ML 1,000 ML ONE (08:12)
[2020-12-09] MEDS ORDERED: OFIRMEV IV 1000 MG VIAL 1,000 MG/100 ML VIAL IV ONE (08:12)
[2020-12-09] MEDS ORDERED: BRIDION ONE (08:14)
[2020-12-09] MEDS ORDERED: ZEMURON 50 MG VIAL ONE (08:15)
[2020-12-09] MEDS ORDERED: DIPRIVAN VIAL ONE (08:16)
[2020-12-09] MEDS ORDERED: XYLOCAINE 1 % (PLAIN) ONE (08:16)
[2020-12-09] MEDS ORDERED: VERSED ONE (08:16)
[2020-12-09] MEDS ORDERED: ULTANE GAS IN ONE (08:16)
[2020-12-09] MEDS ORDERED: ZOFRAN INJ 4 MG VIAL ONE ×2 (08:16→10:03)
[2020-12-09] MEDS ORDERED: PHENERGAN INJ 25 MG IM PRN (09:28)
[2020-12-09] MEDS ORDERED: REGLAN INJ 10 MG VIAL IVP PRN (09:28)
[2020-12-09] MEDS ORDERED: ZOFRAN INJ 4 MG VIAL IVP PRN (09:28)
[2020-12-09] MEDS ORDERED: BENADRYL INJ 50 MG VIAL IVP PRN (09:28)
[2020-12-09 09:35] LABS: BASOPHILS % (AUTO) 0.3 % (0.2-1.0); EOSINOPHILS # (AUTO) 0.1 x10^3/uL (0.0-0.2); HEMATOCRIT 35.3 % (36.0-47.0); HEMOGLOBIN 11.9 g/dL (12.0-16.0); LYMPHOCYTES # (AUTO) 2.5 X10^3/uL (1.3-2.9); LYMPHOCYTES % (AUTO) 38.4 % (21.0-51.0); MEAN CORPUSCULAR HEMOGLOBIN 27.4 pg (27.0-34.0); MEAN CORPUSCULAR HGB CONC 33.7 g/dL (33.0-35.0); MEAN CORPUSCULAR VOLUME 81.2 fL (80.0-100.0); MEAN PLATELET VOLUME 9.1 fL (7.4-11.0); MONOCYTES # (AUTO) 0.4 x10^3/uL (0.3-0.8); MONOCYTES % (AUTO) 6.2 % (0.0-13.0); NEUTROPHILS # (AUTO) 3.4 x10^3/uL (2.2-4.8); NEUTROPHILS % (AUTO) 53.1 % (42.0-75.0); PLATELET COUNT 186 X10^3/uL (150.0-450.0); RED BLOOD COUNT 4.34 X10^6/uL (3.5-5.4); RED CELL DISTRIBUTION WIDTH 14.3 % (11.6-16.5); WHITE BLOOD COUNT 6.5 X10^3/uL (3.6-10.0)
[2020-12-09] MEDS ORDERED: DILAUDID INJ ONE (09:36)
[2020-12-09] MEDS: DILAUDID INJ IVP PRN ×2 (09:36→09:47)
[2020-12-09 09:53] LABS: ALANINE AMINOTRANSFERASE 21 Units/L (12-78); ALBUMIN 3.2 g/dL (3.4-5.0); ALKALINE PHOSPHATASE 76 Units/L (46-116); ASPARTATE AMINO TRANSFERASE 31 Units/L (15-37); BLOOD UREA NITROGEN 9 mg/dL (7-18); CALCIUM 8.6 mg/dL (8.5-10.1); CARBON DIOXIDE 25.7 mmol/L (21-32); CHLORIDE 107 mmol/L (98-107); COR CA(FOR HYPOALB) 9.2 mg/dL (8.5-10.1); COR NA(FOR HYPERGLY) 142 mmol/L (136-145); CREATININE 0.89 mg/dL (0.55-1.02); SODIUM 142 mmol/L (136-145); TOTAL PROTEIN 7.1 g/dL (6.4-8.2); eGFR NON BLACK RACES > 60 (>60)
[2020-12-09] MEDS ORDERED: DILAUDID INJ IVP PRN (09:57)
[2020-12-09] MEDS: REGLAN INJ 10 MG VIAL IVP PRN ×3 (11:13→20:30)
[2020-12-09] MEDS ORDERED: MORPHINE SULFATE INJ 2 MG INJ IVP PRN (12:52)
[2020-12-09] MEDS: TORADOL 30 MG VIAL IVP PRN ×2 (15:21→20:30)
[2020-12-09] MEDS: PROTONIX INJ 40 MG VIAL IVP SCH (16:40)
[2020-12-09] MEDS: ZOFRAN INJ 4 MG VIAL IVP PRN (16:45)
[2020-12-09] MEDS ORDERED: STERILE WATER IRRIGATION IR ONE (21:56)
[2020-12-10] MEDS: FLAGYL IV PREMIX 500 MG BAG 500 MG/100 ML BAG IV SCH ×2 (02:32→08:08)
[2020-12-10 05:10] LABS: BASOPHILS # (AUTO) 0.1 X10^3/uL (0.0-0.1); BASOPHILS % (AUTO) 0.6 % (0.2-1.0); HEMATOCRIT 35.8 % (36.0-47.0); HEMOGLOBIN 11.9 g/dL (12.0-16.0); LYMPHOCYTES # (AUTO) 1.2 X10^3/uL (1.3-2.9); MEAN CORPUSCULAR HGB CONC 33.2 g/dL (33.0-35.0); MEAN CORPUSCULAR VOLUME 81.2 fL (80.0-100.0); MEAN PLATELET VOLUME 9.6 fL (7.4-11.0); MONOCYTES # (AUTO) 0.4 x10^3/uL (0.3-0.8); MONOCYTES % (AUTO) 3.9 % (0.0-13.0); NEUTROPHILS # (AUTO) 9.1 x10^3/uL (2.2-4.8); NEUTROPHILS % (AUTO) 84.5 % (42.0-75.0); PLATELET COUNT 240 X10^3/uL (150.0-450.0); RED BLOOD COUNT 4.41 X10^6/uL (3.5-5.4); RED CELL DISTRIBUTION WIDTH 14.3 % (11.6-16.5); WHITE BLOOD COUNT 10.8 X10^3/uL (3.6-10.0)
[2020-12-10] MEDS: TORADOL 30 MG VIAL IVP PRN (05:11)
[2020-12-10 05:32] LABS: ALANINE AMINOTRANSFERASE 26 Units/L (12-78); ALBUMIN 3.5 g/dL (3.4-5.0); ALKALINE PHOSPHATASE 75 Units/L (46-116); ASPARTATE AMINO TRANSFERASE 34 Units/L (15-37); BLOOD UREA NITROGEN 9 mg/dL (7-18); CALCIUM 9.1 mg/dL (8.5-10.1); CARBON DIOXIDE 24.4 mmol/L (21-32); CHLORIDE 107 mmol/L (98-107); CREATININE 0.89 mg/dL (0.55-1.02); SODIUM 143 mmol/L (136-145); TOTAL PROTEIN 7.5 g/dL (6.4-8.2); eGFR NON BLACK RACES > 60 (>60)
[2020-12-10] MEDS: NS 1000 ML 1,000 ML IV SCH ×2 (07:15→07:35)
[2020-12-10] MEDS: PROTONIX INJ 40 MG VIAL IVP SCH (08:08)
[2020-12-10] MEDS: ZOFRAN INJ 4 MG VIAL IVP PRN (08:15)
[2020-12-10 09:06] VITALS: BP 120/64
--- NOTE | 2020-12-10 13:24 | DR.PROGNOT ---
Hospital Progress Notes - Progress Note for Day of: Progress Note Date: 12/10/20 - Chief Complaint Chief Complaint: much better today . alert , only moderate abdominal pain . no nausea or vomiting . LFT, Bilirubin , CBC all normal . - Past Medical Family Social History Allergies: Allergies promethazine [From Phenergan] Allergy (Mild, Verified 12/07/20 12:17) RASH hydromorphone [From Dilaudid] Adverse Reaction (Verified 12/10/20 10:02) - Vital Signs Vital Signs: Temperature 98.7 F Pulse Rate [Left Radial] 64 Pulse Rate 56 Respiratory Rate 14 Blood Pressure [Left Arm] 127/64 Blood Pressure 120/64 O2 Sat by Pulse Oximetry 98 - Physical Exam Oriented: Normal Eyes: Normal Ear: Normal Nose: Normal Throat: Normal Cardiovascular: Normal, Irregular GI:Auscultation: Normal GI:Palpation: Normal GI: Tenderness: RUQ, Epigastric Skin: Normal Musculoskeletal: Normal Psychiatric: Anxiety Mood Description: Calm Affect: Anxious Speech Pattern: Clear, Appropriate - Laboratory and Diagnostics Result Diagrams: 12/10/20 04:45 12/10/20 04:45 Labs: 12/07/20 23:18 Stool Stool Culture - Final 12/07/20 23:18 Stool - Final Laboratory WBC 10.8 X10^3/uL (3.6-10.0) H 12/10/20 04:45 RBC 4.41 X10^6/uL (3.5-5.4) 12/10/20 04:45 Hgb 11.9 g/dL (12.0-16.0) L 12/10/20 04:45 Hct 35.8 % (36.0-47.0) L 12/10/20 04:45 MCV 81.2 fL (80.0-100.0) 12/10/20 04:45 MCH 27.0 pg (27.0-34.0) 12/10/20 04:45 MCHC 33.2 g/dL (33.0-35.0) 12/10/20 04:45 RDW 14.3 % (11.6-16.5) 12/10/20 04:45 Plt Count 240 X10^3/uL (150.0-450.0) 12/10/20 04:45 MPV 9.6 fL (7.4-11.0) 12/10/20 04:45 Neut % (Auto) 84.5 % (42.0-75.0) H 12/10/20 04:45 Lymph % (Auto) 11.0 % (21.0-51.0) L 12/10/20 04:45 [place] % (Auto) 3.9 % (0.0-13.0) 12/10/20 04:45 Eos % (Auto) 0.0 % (0.9-2.9) L 12/10/20 04:45 Baso % (Auto) 0.6 % (0.2-1.0) 12/10/20 04:45 Neut # (Auto) 9.1 x10^3/uL (2.2-4.8) H 12/10/20 04:45 Lymph # (Auto) 1.2 X10^3/uL (1.3-2.9) L 12/10/20 04:45 [place] # (Auto) 0.4 x10^3/uL (0.3-0.8) 12/10/20 04:45 Eos # (Auto) 0.0 x10^3/uL (0.0-0.2) 12/10/20 04:45 Baso # (Auto) 0.1 X10^3/uL (0.0-0.1) 12/10/20 04:45 Absolute Nucleated RBC 0.0 /100WBC 12/10/20 04:45 Sodium 143 mmol/L (136-145) 12/10/20 04:45 Corrected Sodium TNP 12/10/20 04:45 Potassium 3.7 mmol/L (3.5-5.1) 12/10/20 04:45 Chloride 107 mmol/L (98-107) 12/10/20 04:45 Carbon Dioxide 24.4 mmol/L (21-32) 12/10/20 04:45 BUN 9 mg/dL (7-18) 12/10/20 04:45 Creatinine 0.89 mg/dL (0.55-1.02) 12/10/20 04:45 Est GFR (MDRD) Af Amer > 60 (>60) 12/10/20 04:45 Est GFR (MDRD) Non-Af > 60 (>60) 12/10/20 04:45 Glucose 110 mg/dL (65-99) H 12/10/20 04:45 Calcium 9.1 mg/dL (8.5-10.1) 12/10/20 04:45 Corrected Calcium TNP 12/10/20 04:45 Iron 46 ug/dL (50-175) L 12/08/20 08:36 Transferrin 202 mg/dL (202-364) 12/08/20 08:36 Ferritin 114 ng/mL (8-252) 12/08/20 08:36 Total Bilirubin 0.40 mg/dL (0.2-1.0) 12/10/20 04:45 AST 34 Units/L (15-37) 12/10/20 04:45 ALT 26 Units/L (12-78) 12/10/20 04:45 Alkaline Phosphatase 75 Units/L (46-116) 12/10/20 04:45 C-Reactive Protein 11.70 mg/L (0-3.0) H 12/08/20 08:36 Total Protein 7.5 g/dL (6.4-8.2) 12/10/20 04:45 Albumin 3.5 g/dL (3.4-5.0) 12/10/20 04:45 Globulin 4.0 g/dL (2.5-4.5) 12/10/20 04:45 Albumin/Globulin Ratio 0.9 Ratio (1.1-2.1) L 12/10/20 04:45 Amylase 53 Units/L (25-115) 12/07/20 12:43 Lipase 87 Units/L (73-393) 12/07/20 12:43 Vitamin B12 279 pg/mL (193-986) 12/08/20 08:36 Folate 14.9 ng/mL (>8.6) 12/08/20 08:36 HCG, Qual Negative <10 mIU/mL 12/08/20 08:36 HCG, Quant 6 mIU/mL (0-6) 12/07/20 12:43 Specimen Type Random urine 12/07/20 20:29 Urine Color Yellow (YELLOW) 12/07/20 20:29 Urine Appearance Clear (CLEAR) 12/07/20 20:29 Urine pH 6.0 (5.0 - 8.0) 12/07/20 20: Ur Specific Ute 1.015 (1.000-1.030) 12/07/20 20:29 Urine Protein Negative (NEGATIVE) 12/07/20 20:29 Urine Glucose (UA) Negative (NEGATIVE) 12/07/20 20:29 Urine Ketones Negative (NEGATIVE) 12/07/20 20:29 Urine Occult Blood Negative (NEGATIVE) 12/07/20 20:29 Urine Nitrite Negative (NEGATIVE) 12/07/20 20:29 Urine Bilirubin Negative (NEGATIVE) 12/07/20 20:29 Urine Urobilinogen Normal (NORMAL) 12/07/20 20:29 Ur Leukocyte Esterase Negative (NEGATIVE) 12/07/20 20:29 Stool Description 40g loose brown 12/07/20 23:18 Stl Occult Blood (IFOB) Positive (NEGATIVE) A 12/07/20 23:18 Stool for White Cells Positive (NEGATIVE) A 12/07/20 23:18 Stl C. diff Tox B Gene Negative (NEGATIVE) 12/07/20 23:18 Stl C. diff [id number] Presumptive negative (NEGATIVE) 12/07/20 23:18 Stool H. pylori Ag Negative (NEGATIVE) 12/07/20 23:18 SARS CoV-2 RNA Rapid PERRI Negative (NEGATIVE) 12/07/20 16:54 Tissue Pathology To follow 12/09/20 09:12 - Assessment and Plan 1: post op lap kirti . to advance diet and discharge . f/u in 10 days . - Problem Patient Problems: Patient Problems Diarrhea (Acute) R19.7 Nausea and vomiting in adult patient (Acute) R11.2 Acute colitis (Acute) K52.9 Biliary dyskinesia (Acute) K82.8
== END 2020-12-10 13:50 | disposition home or self-care (01) ==
LOC: MED/SURG 12:26 → ER 12:26 → MED/SURG 18:22 → ICU 12-09 10:56
PROVIDERS: ADMIT Internal Medicine; ATTEND Internal Medicine
DX: K21.9 Gastro-esophageal reflux disease without esophagitis; Z20.822 Contact with and (suspected) exposure to COVID-19; Z86.16 Personal history of COVID-19; R79.89 Other specified abnormal findings of blood chemistry; R79.82 Elevated C-reactive protein (CRP); I10 Essential (primary) hypertension; R11.2 Nausea with vomiting, unspecified; K82.8 Other specified diseases of gallbladder; K62.5 Hemorrhage of anus and rectum; K81.1 Chronic cholecystitis; D50.8 Other iron deficiency anemias; E03.8 Other specified hypothyroidism; K52.89 Other specified noninfective gastroenteritis and colitis